=== PATIENT | female | born 1970 | race Caucasian/White ===

== ENCOUNTER 2019-11-30 17:07 | Emergency (ER) | payer BC ==
[2019-11-30 17:45] VITALS: BP 125/78
--- NOTE | 2019-11-30 17:48 | UC ---
Lower Extremity/Ankle HPI - HPI Summary HPI Summary: 49 yo female presents with LEFT ankle pain. 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 doing a "crab walk" with a resistance belt. Inverted her left ankle and foot. Since that time has had pain and swelling. She is most concerned because she broke her foot in the past and wants to make sure everything is ok. Has not taken anything OTC for her symptoms. Denies numbness or tingling. - History of Current Complaint Chief Complaint: UCLowerExtremity Stated Complaint: LEFT ANKLE PAIN Time Seen by Provider: 11/30/19 17:48 Hx Obtained From: Patient Hx Last Menstrual Period: control Onset/Duration: Sudden Onset Severity Initially: Moderate Severity Currently: Moderate Pain Intensity: 5 Pain Scale Used: 0-10 Numeric - Allergies/Home Medications Allergies/Adverse Reactions: Allergies Allergy/AdvReac Type Severity Reaction Status Date / Time No Known Allergies Allergy Verified 11/30/19 17:45 Home Medications: Home Medications Control 11/30/19 [History] PMH/Surg Hx/FS Hx/Imm Hx - Additional Past Medical History Additional PMH: None - Surgical History Surgical History: Yes Surgery Procedure, Year, and Place: c-seations - Family History Known Family History: Positive: None - Social History Occupation: Employed Full-time Lives: With Family Alcohol Use: Weekly Substance Use Type: None Smoking Status (MU): Never Smoked Tobacco Review of Systems All Other Systems Reviewed And Are Negative: No Constitutional: Positive: Negative Skin: Positive: Negative Respiratory: Positive: Negative Cardiovascular: Positive: Negative Neurovascular: Positive: Negative Musculoskeletal: Positive: Other: - Left ankle pain Neurological: Positive: Negative Psychological: Positive: Negative Physical Exam - Summary Physical Exam Summary: GENERAL: NAD. WDWN. No pain distress. SKIN: No rashes, sores, lesions, or open wounds. CHEST: No accessory muscle use. Breathing comfortably and in no distress. CV: Pulses intact PT and DP. Cap refill <2seconds MSK: LEFT ANKLE: Mild ttp lateral malleolus. Moderate edema about lateral malleolus. FROM. Strength 5/5. Negative talar tilt. No increased laxity. Negative [place] test. NEURO: Alert. Sensations intact and symmetric B/L LEs PSYCH: Age appropriate behavior. Triage Information Reviewed: Yes Vital Signs: Initial Vital Signs Temp 99.1 F 11/30/19 17:41 Pulse 72 11/30/19 17:41 Resp 16 11/30/19 17:41 BP 125/78 11/30/19 17:41 Pulse Ox 98 11/30/19 17:41 Vital Signs Reviewed: Yes Diagnostics - Radiology Left ankle and foot XR Radiology Interpretation Completed By: Radiologist Summary of Radiographic Findings: REPORT AND IMPRESSION: #. Normal articular alignment at the ankle and foot. #. Negative for fracture or conspicuous osteochondral lesion. #. Talocrural joint effusion with distention of the anterior joint recess. #. Nonfocal soft tissue swelling about the ankle. #. Incidental small bone island noted at the distal tibia without concern. Incidental os peroneum accessory ossicle without concern. Lower Extremity Course/Dx - Course Course Of Treatment: XR as above. Suspect ankle sprain. Pt states that she has crutches at home - advised to use these. Pt was placed in an GUANAKITO wrap and gel splint for comfort. RICE and take tylenol/ ibuprofen for discomfort. F/u with Ortho if symptoms do not improve - Differential Dx/Diagnosis Provider Diagnosis: Left ankle sprain Discharge ED - Sign-Out/Discharge Documenting (check all that apply): Patient Departure All imaging exams completed and their final reports reviewed: Yes - Discharge Plan Condition: Stable Disposition: HOME Patient Education Materials: Ankle Sprain (ED) Referrals: Judi Garcia MD [Primary Care Provider] - Jhon Garcia MD [Medical Doctor] - If Needed Additional Instructions: If you develop a fever, shortness of breath, chest pain, new or worsening symptoms - please call your PCP or go to the ED immediately. 1) The x-ray of your ankle and foot did not show a fracture today 2) Rest, Ice, and elevate your ankle to reduce pain and swelling 3) Use the GUANAKITO wrap, gel splint, and crutches as needed for discomfort. 4) If your symptoms do not improve within 5-7 days, I recommend that you call Orthopedics at the number below to schedule an appointment for further evaluation - Billing Disposition and Condition Condition: STABLE Disposition: Home - Attestation Statements Provider Attestation: This patient was not seen by me. I was available for consult. Chart reviewed. DANTE
== END 2019-11-30 18:10 | disposition home or self-care (01) ==
LOC: UCEAST 17:07
DX: S93.402A Sprain of unspecified ligament of left ankle, initial encounter (principal); X50.0XXA Overexertion from strenuous movement or load, initial encounter; Y92.9 Unspecified place or not applicable
CPT/HCPCS: 99213; G0463